=== PATIENT | male | born 1980 | race Caucasian/White ===

== ENCOUNTER 2018-07-23 23:50 | Emergency (ER) | payer OTHER, BC ==
--- NOTE | 2018-07-24 00:14 | EDM.PDOC ---
ED HPI GENERAL MEDICAL PROBLEM - General Chief Complaint: Upper Extremity Injury/Pain Stated Complaint: Crushing injury to right hand Time Seen by Provider: 07/24/18 00:12 Source of Information: Reports: Patient, Other (Employer) History Limitations: Reports: No Limitations - History of Present Illness INITIAL COMMENTS - FREE TEXT/NARRATIVE: Injured right hand. He is right-handed. He's never had a previous injury. I did show him the x-ray. We did fit him with a splint. [employer] was intact before and after the splint. I did give the patient the risks of today off but he will have to go back to work tomorrow with modified duty if his employer's able to accommodate him. I did recommend another x-ray in about 2-3 weeks to see if fracture has moved. He is to wear the splint when he is active. Otherwise if he is sitting at home and watching television that he can have the splint off into gentle range of motion to help prevent deconditioning. I did give him ice pack. Onset: Today Location: Reports: Upper Extremity, Right Quality: Reports: Sharp Severity: Moderate Improves with: Reports: None Worsens with: Reports: Movement Associated Symptoms: Reports: No Other Symptoms Right index finger Pain Score (Numeric/FACES): 5 - Related Data Allergies Allergy/AdvReac Type Severity Reaction Status Date / Time No Known Drug Allergies Allergy Other Verified 07/24/18 02:01 Home Meds: Home Meds . [No Known Home Meds] 07/24/18 [History] Past Medical History - Past Health History Medical/Surgical History: Denies Medical/Surgical History Social & Family History - Tobacco Use Smoking Status *Q: Current Status Unknown Review of Systems - Review of Systems Review Of Systems: ROS reveals no pertinent complaints other than HPI. ED EXAM, GENERAL - Physical Exam Exam: See Below Exam Limited By: No Limitations General Appearance: Alert, Mild Distress Nose: Normal Inspection Throat/Mouth: Normal Inspection Head: Atraumatic, Normocephalic Neck: Normal Inspection, Supple Respiratory/Chest: No Respiratory Distress, Lungs Clear, Normal Breath Sounds, No Accessory Muscle Use, Chest Non-Tender Cardiovascular: Normal Peripheral Pulses, Regular Rate, Rhythm, No Edema, No Gallop, No JVD, No Murmur, No Rub Extremities: Other (Unable to move his right index finger. This is somewhat swollen. Otherwise has good capillary refill. Sensation is intact. He does have pain about the mid phalanx.) Course - Vital Signs Last Recorded V/S: Last Vital Signs Temp 35.9 C 07/23/18 23:58 Pulse 87 07/23/18 23:58 Resp 16 07/23/18 23:58 BP 138/90 07/23/18 23:58 Pulse Ox Departure - Departure Time of Disposition: 00:50 Disposition: Home, Self-Care 01 Condition: Good Clinical Impression: Fracture of phalanx of right index finger Qualifiers: Encounter type: initial encounter Fracture type: closed Phalanx: middle Fracture alignment: nondisplaced Qualified Code(s): S62.650A - Nondisplaced fracture of middle phalanx of right index finger, initial encounter for closed fracture - Discharge Information *PRESCRIPTION DRUG MONITORING PROGRAM REVIEWED*: Not Applicable *COPY OF PRESCRIPTION DRUG MONITORING REPORT IN PATIENT TEZ: Not Applicable Instructions: Finger Fracture, Adult Referrals: PCP,Unobtain [Primary Care Provider] - Forms: ED Department Discharge, ED Return to Work/School Form Additional Instructions: Ice often. Gentle range of motion throughout the day. Ibuprofen and/ or tylenol for pain. X-rays done. Look for signs of infection. Wear the splint when active. Have the finger x-rayed again in 2-3 weeks.
--- NOTE | 2018-07-24 09:13 | CR ---
[id number] RAD/RAD Hand Right 3V EXAM: RAD Hand Right 3V CLINICAL DATA: TRAUMA COMPARISON: NO PREVIOUS SIMILAR EXAM IS AVAILABLE. FINDINGS: A nondisplaced linear fracture involving the majority of the right second mid phalanx is identified with intra-articular joint extension.. IMPRESSION: NONDISPLACED RIGHT SECOND MIDDLE PHALANGEAL FRACTURE. Sergey Jack MD 07/24/18 0911 Thank you for allowing us to participate in the care of your patient.
== END 2018-07-24 01:00 | disposition home or self-care (01) ==
LOC: VM.ED 23:50
DX: S62.650D Nondisplaced fracture of middle phalanx of right index finger, subsequent encounter for fracture with routine healing (principal); W23.1XXD Caught, crushed, jammed, or pinched between stationary objects, subsequent encounter
CPT/HCPCS: 73130-RT; 99283-25

== ENCOUNTER 2018-07-24 21:19 | Emergency (ER) | payer OTHER, BC ==
--- NOTE | 2018-07-24 21:34 | EDM.PDOC ---
ED HPI GENERAL MEDICAL PROBLEM - General Chief Complaint: Upper Extremity Injury/Pain Stated Complaint: finger pain Time Seen by Provider: 07/24/18 21:34 Source of Information: Reports: Patient History Limitations: Reports: No Limitations - History of Present Illness INITIAL COMMENTS - FREE TEXT/NARRATIVE: Patient was seen by me late last night. He does have a fracture of the middle phalanx of the right index finger. He is having a lot of throbbing with the pain. He does have a organized hematoma but nothing that I can drain on the anterior aspect of his finger. I did recommend heat on the bottom and ice pack on the top. I will give him another day off as he is not able to sleep. I will give him something for breakthrough pain. I reiterated that he needs to have another x-ray in 2-3 weeks. His hand was rewrapped. This claim is a WSI. He is comfort with this plan. I don't believe that he has any compartment issues. He does have good capillary refill. No necrotic or ischemic tissue noted. Onset: Other (Last night at work.) Right Finger-Index Pain Score (Numeric/FACES): 8 - Related Data Allergies Allergy/AdvReac Type Severity Reaction Status Date / Time No Known Drug Allergies Allergy Other Verified 07/24/18 21:27 Home Meds: Home Meds Hydrocodone/Acetaminophen [Lorcet 5-325 mg Tablet] 1 - 2 each PO Q4HR PRN #20 tablet 07/24/18 [Rx] Past Medical History - Past Health History Medical/Surgical History: Denies Medical/Surgical History Review of Systems - Review of Systems Review Of Systems: ROS reveals no pertinent complaints other than HPI. ED EXAM, GENERAL - Physical Exam Exam: See Below Exam Limited By: No Limitations General Appearance: Alert Respiratory/Chest: No Respiratory Distress, Lungs Clear, Normal Breath Sounds, No Accessory Muscle Use, Chest Non-Tender Cardiovascular: Normal Peripheral Pulses, Regular Rate, Rhythm, No Edema, No Gallop, No JVD, No Murmur, No Rub Extremities: Other (Fractured right index finger. Swollen. No ischemic or necrotic tissue noted. Good capillary refill. Range of motion is limited by his perception of pain. Organized hematoma on the anterior aspect but this could not be drained. No compartment issues. Good proximal pulse. Good color. No streaking up the arm. No risk of infection per se.) Course - Vital Signs Last Recorded V/S: Last Vital Signs Temp 36.1 C 07/24/18 21:24 Pulse 75 07/24/18 21:24 Resp 18 07/24/18 21:24 BP 135/90 07/24/18 21:24 Pulse Ox 97 07/24/18 21:24 - Orders/Labs/Meds Meds: Medications Discontinued Medications Generic Name Dose Route Start Last Admin Trade Name Freq PRN Reason Stop Dose Admin Hydrocodone Bitart/Acetaminophen 1 packet 07/24/18 21:47 Take Home: Acetam/Hydrocodon 325-5 Mg, 5 Pack PO 07/24/18 21:48 ONETIME ONE Departure - Departure Time of Disposition: 21:41 Disposition: Home, Self-Care 01 Condition: Good Clinical Impression: Fracture of phalanx of right index finger Qualifiers: Encounter type: initial encounter Fracture type: closed Phalanx: middle Fracture alignment: nondisplaced Qualified Code(s): S62.650A - Nondisplaced fracture of middle phalanx of right index finger, initial encounter for closed fracture - Discharge Information *PRESCRIPTION DRUG MONITORING PROGRAM REVIEWED*: Not Applicable *COPY OF PRESCRIPTION DRUG MONITORING REPORT IN PATIENT TEZ: Not Applicable Prescriptions: Hydrocodone/Acetaminophen [Lorcet 5-325 mg Tablet] 1 - 2 each PO Q4HR PRN #20 tablet PRN Reason: Pain Referrals: PCP,None [Primary Care Provider] - Forms: ED Department Discharge, ED Return to Work/School Form Additional Instructions: Ice on top of the wound. Heat below to help reabsorb the blood clot. Gentle range of motion throughout the day. Wear the brace as needed when active. Use ibuprofen and Tylenol but may use hydrocodone for breakthrough pain. Do not use hydrocodone prior or at work. No safety sensitive activities with the hydrocodone. Have another x-ray done in 2-3 weeks.
[2018-07-24] MEDS ORDERED: Take Home: Acetaminophen/HYDROcodone 325-5 MG, 5 Tab Pack PO ONE (21:47)
== END 2018-07-24 21:55 | disposition home or self-care (01) ==
LOC: VM.ED 21:19
DX: S62.650D Nondisplaced fracture of middle phalanx of right index finger, subsequent encounter for fracture with routine healing (principal); X58.XXXD Exposure to other specified factors, subsequent encounter
CPT/HCPCS: 99283; A9270